=== PATIENT | female | born 1985 | race Asian ===

== ENCOUNTER → 2016-11-09 | Outpatient (CLI) | payer OTHER ==
[~2016-11-09] MED LIST: MISC-696; MTR600X PO; OXYC-57 PO; PRENTAB26 PO
== END | disposition home or self-care (01) ==
LOC: C.PAPS 16:11
PROVIDERS: ATTEND Obstetrics & Gynecology
DX: Z34.83 Encounter for supervision of other normal pregnancy, third trimester (principal)

== ENCOUNTER → 2016-11-09 | Outpatient (CLI) | payer OTHER ==
[2016-11-09 14:17] LABS: BASO % 0.1 %; BASO ABS # 0.01 K/uL (0-0.2); COMPLETE YES; EOS % 0.7 %; IG% 0.3 %; LYMPH % 15.5 %; MEAN CORPUSCULAR HEMOGLOBIN 31.6 pg (25-34); MEAN CORPUSCULAR HGB CONC 37.1 g/dl (32-36); MEAN PLATELET VOLUME 9.9 fL (7.4-10.4); MONO % 5.5 %; NEUT % 77.9 %; PLATELET COUNT 290 K/uL (130-400); RED BLOOD COUNT 4.12 M/uL (4.2-5.4); WHITE BLOOD COUNT 9.03 K/uL (4.8-10.8)
[2016-11-09 16:32] LABS: URINE APPEARANCE CLEAR (CLEAR); URINE BILIRUBIN NEG (NEG); URINE COLOR YELLOW; URINE NITRITE NEG (NEG); URINE SPECIFIC GRAVITY 1.002 (1.000-1.030); UROBILINOGEN NEG (NEG)
[2016-11-09 16:38] LABS: MANUAL MICROSCOPIC REQUIRED? NO; REVIEW REQ? NO
[2016-11-12 02:55] LABS: CHLAMYDIA TRACH RNA*** NOT DETECTED (NOT DETECTED); GC (NEIS GONORRHOEAE)RNA** NOT DETECTED (NOT DETECTED)
== END | disposition home or self-care (01) ==
LOC: C.LAB1850 12:40
PROVIDERS: ATTEND Obstetrics & Gynecology
DX: O34.219 Maternal care for unspecified type scar from previous cesarean delivery (principal)

== ENCOUNTER → 2016-12-28 | Outpatient (CLI) | payer OTHER ==
[2016-12-28 14:48] LABS: GTGD 50 Grams
== END | disposition home or self-care (01) ==
LOC: C.LAB1850 09:36
PROVIDERS: ATTEND Obstetrics & Gynecology
DX: Z34.82 Encounter for supervision of other normal pregnancy, second trimester (principal)

== ENCOUNTER → 2017-03-21 | Outpatient (CLI) | payer OTHER ==
[2017-03-21 13:09] LABS: GTGD 50 Grams
== END | disposition home or self-care (01) ==
LOC: C.LAB1850 10:23
PROVIDERS: ATTEND Obstetrics & Gynecology
DX: Z34.83 Encounter for supervision of other normal pregnancy, third trimester (principal)

== ENCOUNTER → 2017-03-21 | Outpatient (CLI) | payer OTHER ==
[2017-03-21 15:18] LABS: URINE APPEARANCE CLOUDY (CLEAR); URINE BILIRUBIN NEG (NEG); URINE COLOR YELLOW; URINE EPITHELIAL CELL AUTO >30 /lpf (0-5); URINE NITRITE NEG (NEG); URINE PH 7.5 (4.5-7.5); UROBILINOGEN NEG (NEG)
[2017-03-21 15:22] LABS: MANUAL MICROSCOPIC REQUIRED? NO; REVIEW REQ? NO
== END | disposition home or self-care (01) ==
LOC: C.LABSPEC 13:32
PROVIDERS: ATTEND Obstetrics & Gynecology
DX: Z34.83 Encounter for supervision of other normal pregnancy, third trimester (principal)

== ENCOUNTER → 2017-05-17 | Outpatient (CLI) | payer OTHER | END | disposition home or self-care (01) | LOC: C.LABSPEC 16:37 | PROVIDERS: ATTEND Obstetrics & Gynecology | DX: Z34.83 Encounter for supervision of other normal pregnancy, third trimester (principal) ==

== ENCOUNTER 2017-06-05 05:47 | Inpatient (IN) | payer OTHER ==
--- NOTE | 2017-06-02 11:04 | PAT Medication Instructions ---
Service Date Jun 02, 2017. Current Home Medication List Multivit/Min/Iron/Fol Ac/Pren ( Vitamin), 1 TAB PO HS Medication Instructions For Your Scheduled Surgery - Take the following medications as scheduled the night before surgery: Multivit/Min/Iron/Fol Ac/Pren ( Vitamin), 1 TAB PO HS *OTHERWISE NOTHING TO EAT OR DRINK AFTER MIDNIGHT* If you have any questions please call us at [phone] or [phone] or [phone]
[2017-06-02 11:51] LABS: BASO % 0.1 %; BASO ABS # 0.01 K/uL (0-0.2); COMPLETE YES; EOS % 1.2 %; HEMATOCRIT 34.7 % (37-47); IG% 2.2 %; LYMPH % 12.4 %; LYMPH ABS # 1.18 K/uL (1.2-3.4); MEAN CELL VOLUME 89.7 fL (80-100); MEAN CORPUSCULAR HEMOGLOBIN 30.5 pg (25-34); MEAN PLATELET VOLUME 10.5 fL (7.4-10.4); MONO % 6.3 %; NEUT % 77.8 %; PLATELET COUNT 223 K/uL (130-400); RED BLOOD COUNT 3.87 M/uL (4.2-5.4); URINE APPEARANCE CLEAR (CLEAR); URINE BILIRUBIN NEG (NEG); URINE COLOR YELLOW; URINE NITRITE NEG (NEG); URINE PH 7.5 (4.5-7.5); UROBILINOGEN NEG (NEG); WHITE BLOOD COUNT 9.55 K/uL (4.8-10.8)
[2017-06-02 11:52] LABS: MANUAL MICROSCOPIC REQUIRED? NO; REVIEW REQ? NO
[~2017-06-05] VITALS: Ht 154.9 cm; Wt 82.7 kg
[2017-06-05] VITALS (15 sets, daily range): BP systolic 99–105; BP diastolic 58–65; PULSE 74–87; TEMP 36.5–36.9; O2SAT 98–100; Ht 154.9 cm; Wt 82.7 kg
[~2017-06-05 05:47] MED LIST changes: -MISC-696; -MTR600X PO; -OXYC-57 PO; +PATIENT'S HEIGHT AND/OR WEIGHT NEEDED SCH
[2017-06-05] MEDS ORDERED: LACTATED RINGER'S 1000ML 1,000 ML IV SCH (06:00)
[2017-06-05] MEDS ORDERED: CITRIC ACID/SODIUM CITRATE 15 ML UDC PO SCH (06:00)
[2017-06-05] MEDS ORDERED: CEFAZOLIN IV 2,000 MG in DEXTROSE 5% 50ML IV SCH (06:00)
[2017-06-05] MEDS ORDERED: OXYTOCIN INJ 10 UNITS/ML VIAL ONE ×2 (06:22→08:01)
[2017-06-05] MEDS ORDERED: EpHEDrine SULFATE INJ 50 MG/ML AMP ONE (06:22)
[2017-06-05] MEDS ORDERED: PHENYLEPHRINE HCL INJ 10 MG/ML VIAL ONE (06:22)
[2017-06-05 06:35] LABS: BASO % 0.2 %; BASO ABS # 0.02 K/uL (0-0.2); EOS % 1.3 %; IG% 3.7 %; LYMPH % 17.1 %; LYMPH ABS # 1.47 K/uL (1.2-3.4); MEAN CELL VOLUME 88.3 fL (80-100); MEAN CORPUSCULAR HEMOGLOBIN 30.9 pg (25-34); MEAN PLATELET VOLUME 10.2 fL (7.4-10.4); MONO % 7.8 %; NEUT % 69.9 %; PLATELET COUNT 194 K/uL (130-400); RED BLOOD COUNT 3.85 M/uL (4.2-5.4); WHITE BLOOD COUNT 8.62 K/uL (4.8-10.8)
[2017-06-05 06:41] LABS: COMPLETE YES
[2017-06-05] MEDS ORDERED: FENTANYL CITRATE INJ 50 MCG/1 ML 2 ML VIAL ONE (06:42)
[2017-06-05] MEDS ORDERED: MORPHINE SULFATE PF 2MG/2ML SYR ONE (06:42)
[2017-06-05] MEDS ORDERED: EpHEDrine SULFATE INJ 50 MG/ML AMP IV PRN ×2 (07:15→09:15)
[2017-06-05] MEDS ORDERED: ATROPINE SULFATE 0.1 MG/ML 5ML SYR IV PRN (07:15)
[2017-06-05] MEDS ORDERED: ONDANSETRON INJ 2 MG/ML 2 ML VIAL IV PRN ×2 (07:15→09:15)
[2017-06-05] MEDS ORDERED: PROMETHAZINE HCL INJ 12.5 MG in SODIUM CHLORIDE 0.9% 50ML 50 ML IV PRN (07:15)
[2017-06-05] MEDS ORDERED: ACETAMINOPHEN 1000 MG/100 ML IV IV ONE (07:15)
[2017-06-05] MEDS ORDERED: KETOROLAC TROMETHAMINE 30 MG/ML VIAL IV. PRN ×2 (07:15→09:15)
--- NOTE | 2017-06-05 07:59 | HISTORY & PHYSICAL EXAMINATION ---
DATE OF ADMISSION: 06/05/2017 PREOPERATIVE DIAGNOSES: 1. Holbrook intrauterine at term. 2. Prior section for failed vacuum. 3. Declines trial of labor after . HISTORY OF PRESENT ILLNESS: This is a 32-year-old G4, P1-0-2-1 with an EDC of 06/11/2017, determined based on last menstrual period, consistent with first trimester ultrasound. The patient has a that has been uncomplicated. She does have a history of a prior which was in 2011 notable for delivery of a 6 pound 11 ounce infant with a failed attempt at vacuum and ultimately resulted in a low transverse section done in [place]. She has 2 additional pregnancies resulted in miscarriage and a TAB both in 2010. LABORATORY VALUES: Within this are notable for blood type O positive, rubella immune, group B Strep negative. ALLERGIES: No known drugs. CURRENT MEDICATIONS: vitamins only. PAST MEDICAL HISTORY: Essentially unremarkable, though she did have varicella. PAST SURGICAL HISTORY: D&E x1 and a x1. SOCIAL HISTORY: and negative x3. FAMILY HISTORY: Noncontributory. PHYSICAL EXAMINATION: VITAL SIGNS: On the Monday prior to her section, when her consents and preoperative exam were done; patient weighed 182 pounds, had a blood pressure of 122/80, and a heart rate of 142. GENERAL: She was generally alert and in no acute distress. LUNGS: Clear. HEART: Regular rate and rhythm. No rubs, murmurs or gallops. ABDOMEN: Gravid as expected with a fundal height appropriate for gestational age. PELVIC: Deferred by patient at that time. EXTREMITIES: Within normal limits with mild related edema at each ankle. ASSESSMENT AND PLAN: This is a 32-year-old 4, para 1-0-2-1 with a term and history of prior section; who presents for repeat . Plan to proceed this morning.
[2017-06-05] MEDS ORDERED: METHYLERGONOVINE MALEATE 0.2 MG/ML AMP ONE (08:19)
[2017-06-05] MEDS ORDERED: ONDANSETRON INJ 2 MG/ML 2 ML VIAL ONE (08:21)
[2017-06-05] MEDS ORDERED: LANOLIN OINT EXT PRN ×2 (09:00)
[2017-06-05] MEDS ORDERED: HYDROCORTISONE ACETATE 25 MG SUPP PR PRN (09:00)
[2017-06-05] MEDS ORDERED: DIPHTHERIA/TETANUS/PERTUSSIS 0.5 ML SYR/VIAL IM. ONE (09:00)
[2017-06-05] MEDS ORDERED: SENNA 8.6 MG TAB PO PRN (09:00)
[2017-06-05] MEDS ORDERED: BENZOCAINE 20% AER SPR 82.5 GM CAN EXT PRN (09:00)
[2017-06-05] MEDS ORDERED: SUPERCREAM 0.870 % 15GM JAR EXT PRN (09:00)
[2017-06-05] MEDS ORDERED: MAGNESIUM HYDROXIDE SUSP 30 ML UDC PO PRN (09:00)
[2017-06-05] MEDS ORDERED: NALOXONE HCL INJ 1 MG in SODIUM CHLORIDE 0.9% 1000ML 1,000 ML IV PRN ×4 (09:08)
[2017-06-05] MEDS ORDERED: NALOXONE HCL INJ 0.08 MG in SYRINGE 1.8 ML IV PRN (09:08)
[2017-06-05] MEDS ORDERED: LACTATED RINGER'S 1000ML 500 ML IV PRN (09:08)
[2017-06-05] MEDS ORDERED: SODIUM CHLORIDE 0.9% 1000ML 1,000 ML IV PRN (09:08)
[2017-06-05] MEDS ORDERED: METOCLOPRAMIDE HCL INJ 20 MG in SODIUM CHLORIDE 0.9% 50ML 50 ML IV PRN (09:15)
[2017-06-05] MEDS ORDERED: MEPERIDINE HCL 25 MG/ML CARP IV PRN (09:15)
[2017-06-05] MEDS ORDERED: NO NARCOTICS OR SEDATIVES SCH (09:15)
[2017-06-05] MEDS ORDERED: MoRPHine SULFATE 2 MG/ML CARP IV PRN (09:15)
[2017-06-05] MEDS ORDERED: DiphenhydrAMINE HCL 50 MG/ML VIAL IV PRN (09:15)
[2017-06-05] MEDS ORDERED: NALOXONE HCL 0.4 MG/1 ML VIAL/CARP IV PRN (09:15)
[2017-06-05] MEDS ORDERED: NALBUPHINE HCL INJ 10 MG/ML AMP IV PRN (09:15)
[2017-06-05] MEDS ORDERED: MoRPHine SULFATE PF 1 MG/ML 10 ML AMP/VIAL EPI PRN (09:15)
[2017-06-05] MEDS ORDERED: PROMETHAZINE HCL INJ 25 MG in SODIUM CHLORIDE 0.9% 50ML 50 ML IV PRN (09:15)
--- NOTE | 2017-06-05 09:23 | [facility] Operative Report ---
Operative Report Operative Date Jun 05, 2017. Pre-Operative Diagnosis Holbrook at Term; History of Previous Caesarean Section;Declines Trial of Labor Post-Operative Diagnosis Same Procedure(s) Performed Repeat Caesarean Section; Delivery of a live male child at [address] Liang Chief Procurement Officer Surgeon(s) Dr. Gutiérrez Estimated Blood Loss 850 cc Findings Viable male infant, APGARS 9/10, 3560 gm. Normal appearing uterus, fallopian tubes, and ovaries bilaterally. Fluids 1600 Specimens cord blood- placenta-hold Drains De La Cruz, clear urine, 100 UOP Anesthesia Spinal Complication(s) Hematoma, sutured Disposition L&D I attest to the content of the Intraoperative Record and any orders documented therein. Any exceptions are noted below.
[2017-06-05] MEDS: SIMETHICONE 80 MG CHEW PO SCH ×4 (10:00→20:10)
--- NOTE | 2017-06-05 10:00 | OPERATIVE REPORT ---
DATE OF OPERATION: 06/05/2017 PREOPERATIVE DIAGNOSES: 1. Holbrook intrauterine at term. 2. Prior section. 3. Declines trial of labor after . POSTOPERATIVE DIAGNOSES: Same plus left retroperitoneal hematoma with left uterine artery ligation. SURGEON: Dr. Davina Liang. INCLUSION INTERN: Mauricio Beyer MD ESTIMATED BLOOD LOSS: 850 mL. URINE OUTPUT: 100. FINDINGS: Normal tubes and ovaries bilaterally. Infant in the vertex presentation. Significant scar tissue from prior delivery. Hematoma, 1 inch x 2 inches, formed on the posterior left lateral aspect of the uterus after repair of the hysterotomy, which was stable to reduced after superior and inferior ligation of the left uterine artery by a circumferential suture. COMPLICATIONS: Left hematoma with uterine artery ligation. DISPOSITION: Stable in PACU. DESCRIPTION OF PROCEDURE: Saul was taken to the operating room for planned repeat section, placed on the operating table in the supine position with a leftward tilt and prepped and draped in standard sterile fashion and a hard time-out was taken prior to proceeding. A Pfannenstiel incision was created. This was carried down sharply through the subcutaneous tissue, where significant scarring was noted until the fascia was reached. The fascia was incised and this was extended laterally using Alves scissors. The superior edges of the fascia were grasped with Wei clamps and these were elevated. Sharp dissection was required to separate the fascia from the underlying rectus, which carried significant scar tissue from her prior . Once the superior fascial edge had been freed significantly, the inferior edge was treated similarly until it was freed as well. The midline of the rectus was knitted completely back together and this was therefore in a layer by layer fashion using Metzenbaum scissors and then ultimately Bovie electrocautery to separate some dense scar tissue. Once the rectus were able to be , the peritoneum was encountered and this was entered bluntly. This was then extended using pressure from the surgeon's hands in order to create sufficiently wide peritoneal window. A bladder blade was introduced. The lower uterine segment was found to be well developed. A bladder flap was recreated using a pickup and Metzenbaum scissors and then the bladder blade was replaced behind the flap. A transverse incision was made with the final entry to the uterus being made in a blunt manner using the surgeon's fingers and intact amnion was encountered and this was then deliberately ruptured for clear fluid. The 's head was elevated to the hysterotomy and delivered using mild fundal pressure. The infant was vigorous immediately upon delivery. The cord was doubly clamped and cut and the was taken to the warmer. Cord blood was collected and the placenta was then delivered manually and found to be intact with a 3-vessel cord. The uterus was gently exteriorized and cleared of all clot and debris with a dry lap sponge. The angles of the hysterotomy were identified with Allis clamps and the hysterotomy was repaired in 2-layer fashion, first layer being a locked running 0 Vicryl and second layer being an imbricating nonlocked 0 Vicryl. At the completion of the repair, a 1 x 2 cm hematoma was identified at the left angle of the hysterotomy. This was addressed using an 0 chromic suture in a [id number] manner, which was successful in halting that hematoma. The uterus was then tilted forward and examination of the posterior aspect of the uterus revealed an area concerning for the early formation of the left retroperitoneal hematoma, which was at that time reached about 1 inch x 1 inch in size. I asked my partner Dr. Beyer to come to the operating room, which he promptly did. He scrubbed into the case and was able to confirm with me that there was indeed a hematoma forming on the posterior aspect of the left side of the uterus, which at that point was 1 x 2 inches in size. We packed the bowel away and both by palpation and visualization identified the ureter on that side. While Dr. Beyer digitally isolated the adnexal structures, I was able to place two #1 Vicryl sutures around the left uterine vessel bundle, one of which was superior to the area of suspected bleeding just lateral to the hysterotomy, one of which was inferior to the area suspected bleeding just lateral to the hysterotomy. These were placed around the uterine vessels excluding the adnexa and once tied tightly, we performed multiple periods of observation. First, the uterus was held on pressure around the left vessels for 2 minutes and then observed and mild decompression of the hematoma was observed. The uterus was then held off any tension for an additional 2-minute observation period, after which all parties agreed that the hematoma was stable without any further growth. The ureter was once again identified and visually seen to be peristalsing. At this time, Aviva was applied to both the front and back surfaces of the left side of the uterus in the area where the sutures had been placed. All packing was removed from the abdomen. The uterus was gently reapproximated. Sponge count was instituted prior to closure of the fascia and when the sponge count was found to be complete, the fascia was then closed. The fascia was closed with the usual #1 Vicryl in a running nonlocked manner, at the completion of which the fascia was examined and found to be free of any defect. The subcutaneous tissue was copiously irrigated and then closed with a 3-0 chromic as well as the skin being closed with 4-0 Monocryl and covered with Dermabond dressing. The De La Cruz is currently draining clear yellow urine as the patient is being transferred in stable condition to her recovery. The plan at this time is for an H&H to be performed at noon, which was approximately 3 hours away and then again at 04:00 p.m. to ensure stability. The patient was also informed of the complication with the left uterine artery being ligated prior to her leaving the operating room and she is aware of the plan for serial labs this afternoon to ensure her stability and safety. Her nurse, Arminda Schultz was also aware of this and will be notifying me of any changes in her vital signs or suspicion of instability in the postop recovery. I attest to the content of the Intraoperative Record and any orders documented therein. Any exception s are noted below.
[2017-06-05] MEDS: OXYTOCIN INJ 30 UNITS in LACTATED RINGER'S 1000ML 1,000 ML IV SCH ×2 (10:04→17:30)
--- NOTE | 2017-06-05 11:26 | Anesthesiology Progress Note ---
Anesthesia Post Op Note Date & Time Jun 05, 2017 at 11:25 Notes Mental Status: alert / awake / arousable, participated in evaluation Pt Amnestic to Procedure: Yes Nausea / Vomiting: adequately controlled Pain: adequately controlled Airway Patency, RR, SpO2: stable & adequate BP & HR: stable & adequate Hydration State: stable & adequate Neuraxial Anesthesia: was administered, sensory block is resolving Anesthetic Complications: no major complications apparent
[2017-06-05 12:11] LABS: HEMATOCRIT 32.9 % (37-47)
[2017-06-05 16:21] LABS: HEMATOCRIT 30.1 % (37-47)
[2017-06-05] MEDS: DOCUSATE SODIUM 100 MG CAP PO SCH (20:10)
[2017-06-06] VITALS (7 sets, daily range): BP systolic 96–100; BP diastolic 57–64; PULSE 78–86; TEMP 36.8–37.3; O2SAT 97–100
[2017-06-06] MEDS ORDERED: DC INTRASPINAL MORPHINE SCH (02:00)
[2017-06-06] MEDS ORDERED: KETOROLAC TROMETHAMINE 30 MG/ML VIAL IV. PRN (02:01)
[2017-06-06] MEDS ORDERED: PROMETHAZINE HCL INJ 25 MG in SODIUM CHLORIDE 0.9% 50ML 50 ML IV PRN (02:01)
[2017-06-06] MEDS ORDERED: DiphenhydrAMINE HCL 50 MG/ML VIAL IV PRN (02:01)
[2017-06-06] MEDS ORDERED: OXYCODONE/ACETAMINOPHEN 5-325 TAB PO PRN (02:01)
[2017-06-06] MEDS ORDERED: ONDANSETRON INJ 2 MG/ML 2 ML VIAL IV PRN (02:01)
--- NOTE | 2017-06-06 05:56 | OB/GYN Progress Note ---
MANAGER FINE [employer]INING Progress Note Date of Service Jun 06, 2017. Subjective conversation w/ patient, physical exam, chart review, lab review Ambulation: ambulating normally Voiding: no voiding problems Passing Gas: Yes Diet Tolerance: Regular Diet Lochia: Small Feeding Type: Breast Feeding Pain: Denies Notes: - De La Cruz out this am, pending void. Review of Systems Constitutional: No fever, No chills Respiratory: No cough, No shortness of breath Cardiac: No chest pain, No edema Abdomen: No nausea, No vomiting, No diarrhea Female : No dysuria Objective Vital Signs Date Time Temp Pulse Resp B/P (MAP) Pulse Ox O2 Delivery O2 Flow Rate FiO2 06/06/17 04:10 37.1 86 18 96/60 (72) 97 Room Air 06/06/17 04:10 97 Room Air 06/06/17 02:00 16 97 06/06/17 01:00 20 100 06/06/17 00:50 97 Room Air 06/06/17 00:50 37.3 78 18 100/64 (76) 97 Room Air 06/06/17 00:00 18 99 06/05/17 23:00 18 98 06/05/17 22:00 16 99 06/05/17 21:00 16 99 06/05/17 20:49 Room Air 06/05/17 20:46 36.9 74 16 105/65 (78) 99 Room Air 06/05/17 20:00 16 99 06/05/17 19:00 16 99 06/05/17 18:00 15 99 06/05/17 17:15 16 100 06/05/17 16:00 16 99 06/05/17 15:42 Room Air 06/05/17 15:42 36.8 87 16 101/58 (72) 99 Room Air 06/05/17 15:30 16 99 06/05/17 14:30 20 99 06/05/17 13:30 18 98 06/05/17 12:30 36.6 78 20 101/64 (76) 99 Room Air 06/05/17 11:30 36.5 84 20 99/60 (73) 98 Room Air 06/05/17 11:30 98 Room Air Physical Exam General Appearance: WD/WN, NO APPARENT DISTRESS Respiratory/Chest: lungs clear, normal breath sounds, no respiratory distress Cardiovascular: regular rate, rhythm, no edema, no murmur Abdomen: normal bowel sounds, non tender, soft Fundus: Firm, Non-Tender, Relation to Umbilicus (approx one down) Incision Description: Clean, Dry & Intact Extremities: normal range of motion, no pedal edema, no calf tenderness Laboratory Results Last 24 Hours Test 06/05/17 06:04 06/05/17 11:56 06/05/17 16:01 White Blood Count 8.62 K/uL Red Blood Count 3.85 M/uL Hemoglobin 11.9 g/dL 11.3 g/dL 10.5 g/dL Hematocrit 34.0 % 32.9 % 30.1 % Mean Corpuscular Volume 88.3 fL Mean Corpuscular Hemoglobin 30.9 pg Mean Corpuscular Hemoglobin Concent 35.0 g/dl Platelet Count 194 K/uL Mean Platelet Volume 10.2 fL Neutrophils (%) (Auto) 69.9 % Lymphocytes (%) (Auto) 17.1 % Monocytes (%) (Auto) 7.8 % Eosinophils (%) (Auto) 1.3 % Basophils (%) (Auto) 0.2 % Neutrophils # (Auto) 6.03 K/uL Lymphocytes # (Auto) 1.47 K/uL Monocytes # (Auto) 0.67 K/uL Eosinophils # (Auto) 0.11 K/uL Basophils # (Auto) 0.02 K/uL RDW Standard Deviation 45.0 fL RDW Coefficient of Variation 13.8 % Immature Granulocyte % (Auto) 3.7 % Immature Granulocyte # (Auto) 0.32 K/uL Assessment and Plan Post-Op Day Number: 1 Continue Routine Care: 32F s/p scheduled repeat , now PPD #1. - Blood type O positive. GBS negative. Rubella immune. - Vital signs reviewed and stable. - Pain controlled with toradol (and s/p spinal). - No leg swelling or tenderness on calf palpation. Encourage ambulation. - Encourage breast feeding. - Hemoglobin pre-delivery 11.9. Serial checks post-op 11.3, 10.5, this am 9.5. Vaginal bleeding has improved. No reports of tachycardia or worsening abd/ pelvic pain s/p delivery. Continue to monitor clinically. - Continue post delivery care. - Pt agreed with above plan, all current questions answered. Tomas Gutiérrez MD, PGY1 Spark Tester Physician Supervision Note: I interviewed and examined the patient. Discussed with Dr. Gutiérrez and agree with findings and plan as documented in the note. Any exceptions or clarifications are listed here: Hgb drop felt to be appropriate for intraoperative losses and fluid dilution; vital signs stable, not tachycardic, patient clinically well this morning. At this time I feel the risk of retroperitoneal bleeding is very low and the patient can be considered stable for routine post- care. Documented By: Davina Liang Resident Tracking Resident Involvement: Resident Care Provided Care Provided: OB Delivery (OB rounds)
[2017-06-06 06:48] LABS: BASO % 0.1 %; BASO ABS # 0.01 K/uL (0-0.2); COMPLETE YES; EOS % 0.8 %; HEMATOCRIT 26.8 % (37-47); IG% 1.4 %; LYMPH ABS # 0.95 K/uL (1.2-3.4); MEAN CORPUSCULAR HEMOGLOBIN 30.8 pg (25-34); MEAN CORPUSCULAR HGB CONC 35.4 g/dl (32-36); MEAN PLATELET VOLUME 10.1 fL (7.4-10.4); MONO % 6.8 %; NEUT % 83.9 %; PLATELET COUNT 173 K/uL (130-400); RED BLOOD COUNT 3.08 M/uL (4.2-5.4); WHITE BLOOD COUNT 13.51 K/uL (4.8-10.8)
[2017-06-06] MEDS: IBUPROFEN 600 MG TAB PO PRN ×3 (08:13→19:45)
[2017-06-06] MEDS: OXYCODONE/ACETAMINOPHEN 5-325 TAB PO PRN ×3 (08:14→19:45)
[2017-06-06] MEDS: SIMETHICONE 80 MG CHEW PO SCH ×4 (08:15→19:45)
[2017-06-06] MEDS: PRENATAL VITAMIN TAB PO SCH (08:15)
[2017-06-06] MEDS: DOCUSATE SODIUM 100 MG CAP PO SCH ×2 (08:16→19:45)
[2017-06-06] MEDS: FERROUS SULFATE 325 MG TAB PO SCH (08:16)
[2017-06-07 00:15] VITALS: BP 103/68; PULSE 81; TEMP 36.6
[2017-06-07] MEDS: IBUPROFEN 600 MG TAB PO PRN ×3 (05:22→21:55)
[2017-06-07] MEDS: OXYCODONE/ACETAMINOPHEN 5-325 TAB PO PRN ×3 (05:22→21:55)
[2017-06-07 06:49] LABS: HEMATOCRIT 27.1 % (37-47)
[2017-06-07 07:30] VITALS: BP 103/69; PULSE 72; TEMP 36.4; O2SAT 99
--- NOTE | 2017-06-07 07:46 | Progress Note ---
Subjective Jun 07, 2017. Subjective conversation w/ patient, physical exam, chart review, lab review Ambulation: ambulating normally Voiding: no voiding problems Diet Tolerance: Regular Diet Lochia: Moderate Feeding Type: Breast Feeding Objective Vital Signs Date Time Temp Pulse Resp B/P (MAP) Pulse Ox O2 Delivery O2 Flow Rate FiO2 06/07/17 00:15 Room Air 06/07/17 00:15 36.6 81 18 103/68 (80) Room Air 06/06/17 16:10 97 Room Air 06/06/17 16:10 37.0 83 18 96/57 (70) 97 Room Air Physical Exam General Appearance: WELL-APPEARING Respiratory/Chest: lungs clear Abdomen: non tender Fundus: Firm Extremities: no calf tenderness Laboratory Results Last 24 Hours Test 06/07/17 06:06 Hemoglobin 9.0 g/dL Hematocrit 27.1 % Assessment and Plan Post-Op Day#: 2 Continue Routine Care: Hb 9.0. Ambulate. Start FE on discharge
[2017-06-07] MEDS: FERROUS SULFATE 325 MG TAB PO SCH (08:18)
[2017-06-07] MEDS: DOCUSATE SODIUM 100 MG CAP PO SCH ×2 (08:18→19:49)
[2017-06-07] MEDS: PRENATAL VITAMIN TAB PO SCH (08:18)
[2017-06-07] MEDS: SIMETHICONE 80 MG CHEW PO SCH ×4 (08:18→19:49)
[2017-06-07 16:00] VITALS: BP 116/74; PULSE 88; TEMP 37.2
--- NOTE | 2017-06-07 20:10 | Discharge Instructions ---
Discharge Instructions Date of Service Jun 07, 2017. Admission Reason for Admission: Previous Section Discharge Discharge Diagnosis / Problem: recovery from Discharge Goals Goal(s): Routine recovery after Activity Recommendations Activity Limitations: per Instructions/Follow-up section . Instructions / Follow-Up Instructions / Follow-Up ACTIVITY RECOMMENDATIONS: * Gradual return to full activity over the next 2-3 weeks. * No lifting - nothing heavier than baby over the next 2-3 weeks. * Do not engage in vigorous exercise, sexual activity or sports until cleared by your physician. * Do not drive or operate any motorized equipment until cleared by your physician. * You may shower/bathe daily. MEDICATIONS: For discomfort or pain, you may use Acetaminophen (Tylenol), Ibuprofen (Advil), or Naproxen (Aleve) following the package directions. For constipation you may use Colace following the package directions. BREAST CARE: If you are not breast feeding: * Wear a supportive bra 24 hours a day for one to two weeks. * Avoid stimulating your breasts and nipples as much as possible during the first few weeks after delivery. * When taking a shower, have the warm water hit your back, not breasts. * When your breasts feel full, apply ice packs. Usually three to four times a day helps ease the discomfort. * Take a mild pain medication (Tylenol / Motrin) when you are uncomfortable. If breast feeding: * Use breast milk to lubricate nipples. Lansinoh cream may be used for sore nipples. You do not need to remove cream prior to breast feeding. If using a different brand of cream, check the label for directions regarding removal of cream prior to nursing. * Wear a supportive bra. * If having problems with breasts or breast feeding, call a business solutions consultant or your health care provider. SPECIAL CARE INSTRUCTIONS: When you are discharged from the hospital, it is important for you to follow the instructions listed below: * During the first week at home, you should be able to care for yourself and your baby. In addition, the usual light household activities are encouraged. * Limit your activities to the way you feel. Do not try to clean the house or move furniture. Be sensible. * If you actively engage in sports and have done so up until the time of your delivery, you may resume these activities as soon as you feel able. This may take up to one month or even longer. Use good judgment. * Continue to take your vitamins for at least six weeks after the of your baby. * Your diet need not be limited unless you were on a special diet before your delivery. Breast-feeding mothers need around 2500 calories per day and at least 64-80 ounces of fluid per day (8 to 10 glasses). * You should eat foods from the four major food groups. Crash diets or fad diets are to be avoided. Eating lean meats, fresh fruits and vegetables, low-fat dairy products, high fiber foods and a regular exercise program, will help you get back to your pre- weight without putting your health at risk. * Constipation is sometimes a problem after delivery. Take a mild laxative as needed. If breast feeding, Milk of Magnesia is acceptable to use. You may use a suppository or Fleets enema. * A daily shower or tub bath is suggested. Wash incision daily with warm soapy water and pat dry. It doesn't need to be covered unless drainage is present. * A bloody vaginal discharge will usually continue until around four weeks . A small amount of bleeding may continue for as long as six weeks. Vaginal discharge changes from the bright red bleeding after delivery to pink then brownish and finally yellowish-pink before becoming white and disappearing. * Bleeding may increase with activity. Your first period may come in 4-8 weeks. If you are breast feeding, your period may be delayed even longer. * [place] (sex) can begin whenever both you and your partner feel comfortable and do not have any form of genital infection. It is recommended that you wait at least six weeks for internal and external healing to occur. If you have questions, please talk to your health care practitioner. A condom should be used to prevent infection and . * Foreplay, gentle intercourse and lubrication is very important the first several times to prevent pain. A water-based lubricant such as K-Y jelly or Astroglide may be used. * If you have RH negative blood and your baby is RH positive, you will receive RHOGAM by injection prior to discharge. The nurse will give you a card to keep with you that has the date and place that you received RHOGAM after delivery. * During your care, you had a Rubella screen done to check for the presence of rubella antibodies in your blood. If your test was negative, you will receive a Rubella vaccine prior to discharge. This vaccine may cause a fever, soreness at the injection site and flu-like symptoms. If these symptoms persist, notify your health care practitioner. is not advised for one month after a Rubella vaccine. * Verbalizes understanding of car seat law as reviewed with patient nursing. * Car Seat hand-out given and reviewed with patient by nursing. * Shaken baby information reviewed with patient by nursing. Call you doctor if: * Heavy bleeding (saturating several pads an hour) or passing clots the size of your fist. * A fever >101 degrees F (38.3 degrees C) on two occasions four hours apart and /or chills. * Unusual pain in the pelvic or vaginal areas. * Call the doctor for any increased redness, drainage or swelling around the incision and any pain unrelieved by prescribed pain medication. * "Baby Blues" lasting longer than two weeks. If you have any questions or concerns, call your health care practitioner at . FOLLOW UP VISIT: * Please call the office at to schedule a 6 week examination. It is important you keep this appointment. It is important for you to make arrangements for either yearly or twice yearly check-ups thereafter. Current Hospital Diet Patient's current hospital diet: Regular Diet Discharge Diet Recommended Diet: Regular OB Diet Procedures Procedures Performed: Repeat Caesarean Section; Delivery of a live male child at 0806 Pending Studies Studies pending at discharge: no Medical Emergencies . Who to Call and When: Medical Emergencies: If at any time you feel your situation is an emergency, please call 911 immediately. . Non-Emergent Contact Non-Emergency issues call your: Customer Contact Specialist . . "Provider Documentation" section prepared by Benita Schmidt. . VTE Core Measure Inpt VTE Proph given/why not?: Treatment not indicated
[2017-06-07 23:35] VITALS: BP 114/72; PULSE 82; TEMP 36.7
[2017-06-08] MEDS ORDERED: OXYC-57 PO (05:29)
[2017-06-08] MEDS ORDERED: MTR600X PO (05:29)
[2017-06-08] MEDS: OXYCODONE/ACETAMINOPHEN 5-325 TAB PO PRN ×3 (07:20→13:51)
[2017-06-08] MEDS: IBUPROFEN 600 MG TAB PO PRN ×2 (07:20→13:51)
[2017-06-08] MEDS ORDERED: NURSING VERBAL MED ORDER ONE (07:30)
--- NOTE | 2017-06-08 07:44 | OB/GYN Progress Note ---
ORDERLY Progress Note Date of Service Jun 08, 2017. Subjective conversation w/ patient, conversation w/ family, physical exam, chart review Ambulation: ambulating normally Voiding: no voiding problems Passing Gas: Yes Diet Tolerance: Regular Diet Lochia: Small Feeding Type: Breast Feeding Pain: Denies Notes: Found pt nursing baby, denies any current pain. Says no BM yet, wonders if can get something for it. No other acute c/o. Review of Systems Constitutional: No fever, No chills Respiratory: No cough, No shortness of breath Cardiac: No chest pain, No edema Abdomen: No nausea, No vomiting, No diarrhea Objective Vital Signs Date Time Temp Pulse Resp B/P (MAP) Pulse Ox O2 Delivery O2 Flow Rate FiO2 06/07/17 23:35 36.7 82 16 114/72 (86) Room Air 06/07/17 23:35 Room Air 06/07/17 16:00 37.2 88 18 116/74 (88) Room Air 06/07/17 15:30 Room Air 06/07/17 08:30 Room Air Physical Exam General Appearance: WELL-APPEARING, WD/WN Respiratory/Chest: lungs clear, normal breath sounds Cardiovascular: regular rate, rhythm, no edema, no murmur Abdomen: normal bowel sounds, non tender, soft Fundus: Firm, Non-Tender, Relation to Umbilicus (approx two down) Incision Description: Clean, Dry & Intact Extremities: non-tender, no pedal edema Assessment and Plan Post-Op Day Number: 3 Continue Routine Care: Resident Physician Supervision Note: I interviewed and examined the patient. Discussed with Dr. Gutiérrez and agree with findings and plan as documented in the note. Any exceptions or clarifications are listed here: [None] Documented By: Benita Schmidt 32F s/p scheduled repeat , now PPD #3. - Blood type O positive. GBS negative. Rubella immune. - Vital signs reviewed and stable. - Pain controlled with motrin & percocet. - No leg swelling or tenderness on calf palpation. Encourage ambulation. - Encourage breast feeding. - Hemoglobin pre-delivery 11.9. Serial checks post-op with latest 9.0. Continue to monitor clinically. - Continue post delivery care. Provided MoM and dulcolax suppository. Discussed d/c instructions. - Pt agreed with above plan, all current questions answered. Tomas Gutiérrez MD, PGY1 Warehouse Traffic Supervisor Tracking Resident Involvement: Resident Care Provided Care Provided: OB Delivery (OB rounds)
[2017-06-08] MEDS ORDERED: BISACODYL 10 MG SUPP PR PRN (07:45)
[2017-06-08 07:50] VITALS: BP 112/74; PULSE 76; TEMP 37; O2SAT 98
[2017-06-08] MEDS: DOCUSATE SODIUM 100 MG CAP PO SCH (08:25)
[2017-06-08] MEDS: PRENATAL VITAMIN TAB PO SCH (08:25)
[2017-06-08] MEDS: SIMETHICONE 80 MG CHEW PO SCH ×2 (08:26→13:51)
[2017-06-08] MEDS: FERROUS SULFATE 325 MG TAB PO SCH (08:26)
[2017-06-08] MEDS ORDERED: MISC-696 (12:31)
[2017-06-08 13:45] VITALS: BP 112/75; PULSE 76
[2017-06-08 15:20] VITALS: BP_DIAS 75; PULSE 76; TEMP 37
--- NOTE | 2017-06-15 14:36 | EDITING REQUIRED CODING QUERY ---
ANEMIA To promote full compliance with coding requirements relating to patient care, physician participation is requested in all cases of x ray equipment servicer uncertainty. Please assist us with the question(s) below: Dr. Liang, The record reflects the following clinical findings: HGB 9.0, start FE on discharge If these findings are indicative of anemia, please specify the known or suspected type by placing an "X" within the parenthesis (x). If other, please document type. Examples are: ( ) Acute blood loss anemia ( ) Acute Postoperative blood loss anemia ( ) Acute postoperative anemia due to dilutional fluids ( ) Chronic blood loss anemia ( ) Iron deficient anemia (x ) Anemia, unspecified or other ( ) Other: (please specify) ( ) Unable to determine Thank you for your time, DEISI Newman, [employer]
== END 2017-06-08 15:50 | disposition home or self-care (01) | DRG 766 ==
LOC: C.LD 05:47 → EDSTATUS 09:00 → C.OBG 11:22
PROVIDERS: ADMIT Obstetrics & Gynecology; ATTEND Obstetrics & Gynecology
PROC: 10D00Z1 Extraction of Products of Conception, Low, Open Approach (ICD-10-PCS; principal; 2017-06-05 07:30)
PROC: 0W3R8ZZ Control Bleeding in Genitourinary Tract, Via Natural or Artificial Opening Endoscopic (ICD-10-PCS; principal; 2017-06-05 07:30)
DX: O34.211 Maternal care for low transverse scar from previous cesarean delivery (principal); D64.9 Anemia, unspecified; O90.2 Hematoma of obstetric wound; O90.81 Anemia of the puerperium; N85.8 Other specified noninflammatory disorders of uterus; Z37.0 Single live birth; Z3A.39 39 weeks gestation of pregnancy